=== PATIENT | female | born 1990 ===

== ENCOUNTER 2021-03-08 09:40 | Emergency (ER) | payer OTHER ==
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
[2021-03-08 11:47] LABS: Urine Blood Negative (Negative); Urine Glucose Negative (Negative); Urine Protein Negative (Negative); Urine Specific Gravity 1.025 (1.005-1.030)
[2021-03-08 11:54] LABS: Absolute Lymphocytes (CBC) 2.7 K/uL (0.7-4.9); Albumin 3.7 g/dL (3.4-5.0); Basophils % 0.8 % (0-1.3); Bilirubin Total 0.4 mg/dL (0.2-1.0); Lymphocytes % 31.9 % (15.3-44.8); MPV 9.6 fL (7.6-11.3); Potassium 3.8 mmol/L (3.5-5.1); Protein, Total 7.5 g/dL (6.4-8.2); RBC Red Blood Cell Count 4.54 M/uL (3.86-4.86)
[2021-03-08] MEDS ORDERED: MORPHINE 2 MG/ML SYR ONE ×2 (11:56→13:05)
[2021-03-08] MEDS ORDERED: KETOROLAC 30 MG/ML INJ ONE (11:56)
[2021-03-08] MEDS ORDERED: NA CHLORIDE 0.9% 1,000 ML ONE (11:56)
[2021-03-08] MEDS ORDERED: ONDANSETRON 4 MG/2 ML VIAL ONE (11:56)
--- NOTE | 2021-03-08 12:06 | RAD REPORT ---
EXAM DESCRIPTION: CT - CTHCSPWOC - 03/08/2021 11:45 am CLINICAL HISTORY: PAINrecent steroid injection COMPARISON: No comparisons TECHNIQUE: Axial 5 mm thick images of the head were obtained. Axial 2 mm thick images of the cervic al spine were obtained with sagittal and coronal reconstruction images generated and reviewed. All CT scans are performed using dose optimization technique as appropriate and may include automated exposure control or mA/KV adjustment according to patient size. FINDINGS: No intracranial hemorrhage, mass, edema or acute intracranial finding. No suspicion for ac [place] infarction. No extra-axial fluid collections. Mastoid air cells and paranasal sinuses are clear. No globe or orbit abnormality seen. Cervical bodies are normal in height. No subluxation abnormality. Anterior endplate spurring at C6-7. There is reversal of the usual cervical lordosis which could be positioning artifact or muscle spasm affect. No disk space narrowing. No fracture or acute bony abnormality. Central canal detail is inh erently limited. No paraspinal mass or hematoma. IMPRESSION: Negative CT head examination for acute or significant finding. No acute cervical spine abnormality seen. View reversal of the usual cervical lordosis could be posit ioning artifact within the scanner, muscle spasm or a combination.
--- NOTE | 2021-03-08 12:24 | EDPHYS ---
Physician Documentation [facility] Name: Maria Del Rosario Xiao Age: 30 yrs Sex: Female : 1990 Arrival Date: 03/08/2021 Time: 09:43 Bed 13 Private MD: ED Physician Ranjith Osuna HPI: 03/08 11:16 This 30 yrs old Black Female presents to ER via Ambulatory with complaints of Headache, edson Fever, Numbness of Finger, Nausea/Vomiting. 11:16 The patient complains of pain to the top of head, forehead, left frontal area, left edson side of the back of head, left occipital area, left base of the skull, right frontal area, right side of the back of head, right occipital area and right base of the skull. The patient describes the headache as constant. Onset: The symptoms/episode began/occurred 2 day(s) ago. Associated signs and symptoms: The patient has no apparent associated signs or symptoms. Severity of symptoms: At its worst the pain was mild, just prior to arrival, in the emergency department the pain is unchanged. Headache History: The patient has had previous headaches and this one is different than previous episodes. The symptoms are alleviated by nothing. the symptoms are aggravated by nothing. The patient has not experienced similar symptoms in the past. 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 - Social history:: Smoking status: Patient denies any tobacco usage or history of. - Family history:: not pertinent. ROS: 11:16 Constitutional: Negative for fever, chills, and weight loss, Eyes: Negative for injury, edson pain, redness, and discharge, ENT: Negative for injury, pain, and discharge, Neck: Negative for injury, pain, and swelling, Cardiovascular: Negative for chest pain, palpitations, and edema, Respiratory: Negative for shortness of breath, cough, wheezing, and pleuritic chest pain, Abdomen/GI: Negative for abdominal pain, nausea, vomiting, diarrhea, and constipation, Back: Negative for injury and pain, : Negative for injury, bleeding, discharge, and swelling, MS/Extremity: Negative for injury and deformity, Skin: Negative for injury, rash, and discoloration, Psych: Negative for depression, anxiety, suicide ideation, homicidal ideation, and hallucinations, Allergy/Immunology: Negative for hives, rash, and allergies, Endocrine: Negative for neck swelling, polydipsia, polyuria, polyphagia, and marked weight changes, Hematologic/Lymphatic: Negative for swollen nodes, abnormal bleeding, and unusual bruising. 11:16 Neuro: Positive for headache. Exam: 11:16 Constitutional: This is a well developed, well nourished patient who is awake, alert, edson and in no acute distress. Head/Face: Normocephalic, atraumatic. Eyes: Pupils equal round and reactive to light, extra-ocular motions intact. Lids and lashes normal. Conjunctiva and sclera are non-icteric and not injected. Cornea within normal limits. Periorbital areas with no swelling, redness, or edema. ENT: Nares patent. No nasal discharge, no septal abnormalities noted. Tympanic membranes are normal and external auditory canals are clear. Oropharynx with no redness, swelling, or masses, exudates, or evidence of obstruction, uvula midline. Mucous membranes moist. Neck: Trachea midline, no thyromegaly or masses palpated, and no cervical lymphadenopathy. Supple, full range of motion without nuchal rigidity, or vertebral point tenderness. No Meningismus. Chest/axilla: Normal chest wall appearance and motion. Nontender with no deformity. No lesions are appreciated. Cardiovascular: Regular rate and rhythm with a normal S1 and S2. No gallops, murmurs, or rubs. Normal PMI, no JVD. No pulse deficits. Respiratory: Lungs have equal breath sounds bilaterally, clear to auscultation and percussion. No rales, rhonchi or wheezes noted. No increased work of breathing, no retractions or nasal flaring. Abdomen/GI: Soft, non-tender, with normal bowel sounds. No distension or tympany. No guarding or rebound. No evidence of tenderness throughout. Back: No spinal tenderness. No costovertebral tenderness. Full range of motion. Female : Normal external genitalia. Skin: Warm, dry with normal turgor. Normal color with no rashes, no lesions, and no evidence of cellulitis. MS/ Extremity: Pulses equal, no cyanosis. Neurovascular intact. Full, normal range of motion. Neuro: Awake and alert, GCS 15, oriented to person, place, time, and situation. Cranial nerves II-XII grossly intact. Motor strength 5/5 in all extremities. Sensory grossly intact. Cerebellar exam normal. Normal gait. Psych: Awake, alert, with orientation to person, place and time. Behavior, mood, and affect are within normal limits. 11:16 Neck: ROM/movement: pain, limited range of motion, that is mild, in any direction, Meningeal signs: are not present, Kernig's sign is negative, Brudzinski's sign is negative, nuchal rigidity, is not appreciated. Vital Signs: 10:00 BP 128 / 81; Pulse 67; Resp 16; Temp 97.4; Pulse Ox 100% on R/A; Weight 97.52 kg; hb Height 5 ft. 4 in. (162.56 cm); Pain 10/10; 10:52 BP 104 / 72; Pulse 72; Pulse Ox 99% on R/A; mb4 11:59 BP 107 / 55; Pulse 61; Resp 16 S; Pulse Ox 100% on R/A; ca1 12:47 BP 102 / 78; Pulse 68; Resp 16 S; Pulse Ox 100% on R/A; ca1 13:16 BP 110 / 71; Pulse 65; Resp 16 S; Pulse Ox 100% on R/A; ca1 10:00 Body Mass Index 36.90 (97.52 kg, 162.56 cm) hb Yuli Coma Score: 11:21 Eye Response: spontaneous(4). Verbal Response: oriented(5). Motor Response: obeys edson commands(6). Total: 15. MDM: 10:23 Patient medically screened. edson 11:21 Differential diagnosis: hypoglycemia, hyponatremia, meningitis, migraine, sinusitis, edson subdural hematoma, tension headache. Data reviewed: vital signs, nurses notes, lab test result(s), radiologic studies, CT scan. Data interpreted: court monitor: rate is 72 beats/min, rhythm is regular, Pulse oximetry: on room air is 99 %. Counseling: I had a detailed discussion with the patient and/or guardian regarding: the historical points, exam findings, and any diagnostic results supporting the discharge/admit diagnosis, lab results, radiology results. 03/08 11:14 Order name: CBC with Diff; Complete Time: 12:16 [facility] 03/08 11:14 Order name: Comprehensive Metabolic Panel; Complete Time: 12:16 [facility] 03/08 11:14 Order name: Urine Culture [facility] 03/08 11:46 Order name: Urine --Ancillary (enter results) 03/08 11:47 Order name: Urine Dipstick-Ancillary; Complete Time: 12:16 [facility] 03/08 11:47 Order name: Urine --Ancillary [facility] 03/08 11:14 Order name: CT Head C Spine; Complete Time: 12:16 [facility] 03/08 11:14 Order name: Urine Dipstick-Ancillary (obtain specimen); Complete Time: 11:46 [facility] Administered Medications: 11:52 Drug: NS 0.9% 1000 ml Route: IV; Rate: 1 bolus; Site: left antecubital; ca1 13:15 Follow up: Response: No adverse reaction; IV Status: Completed infusion; IV Intake: ca1 1000ml 11:53 Drug: Zofran (Ondansetron) 4 mg Route: IVP; Site: left antecubital; ca1 12:48 Follow up: Response: No adverse reaction; Nausea is decreased ca1 11:55 Drug: TORadol (ketorolac) 30 mg Route: IVP; Site: left antecubital; ca1 12:47 Follow up: Response: No adverse reaction; Pain is unchanged, physician notified ca1 11:58 Drug: morphine 2 mg {Note: rass 0.} Route: IVP; Site: left antecubital; ca1 12:47 Drug: morphine 2 mg {Note: rass 0.} Route: IVP; Site: left antecubital; ca1 13:17 Follow up: Response: No adverse reaction; Pain is decreased; RASS: Alert and Calm (0) ca1 Disposition: 03/08/21 12:24 Discharged to Home. Impression: Headache, Strain of muscle, fascia and tendon at neck level, Radiculopathy, cervical region. - Condition is Stable. - Discharge Instructions: Cervical Radiculopathy, General Headache Without Cause, Muscle Strain, General Headache Without Cause, Gcri-cf-Uthy, Cervical Radiculopathy, Vdhf-ps-Svpc, Radicular Pain. - Prescriptions for Ibuprofen 600 mg Oral Tablet - take 1 tablet by ORAL route every 6 hours As needed take with food; 20 tablet. Zofran 4 mg Oral Tablet - take 1 tablet by ORAL route every 12 hours As needed; 14 tablet. Medrol (Mario) 4 mg Oral Tablets, Dose Pack - take 1 tablet by ORAL route as directed - follow package instructions; 1 packet. - Medication Reconciliation Form, Thank You Letter, Antibiotic Education, Prescription Opioid Use, Work release form form. - Follow up: Private Physician; When: 2 - 3 days; Reason: Recheck today's complaints, Continuance of care, Re-evaluation by your physician. Follow up: Dilan Rose MD; When: 2 - 3 days; Reason: Recheck today's complaints, Re-evaluation by your physician. - Problem is new. - Symptoms have improved. Signatures: Dispatcher [employer] EDMS Ranjith Osuna MD MD cha Baxter, Heather, RN RN Vianney Gillespie RN RN ca1 Corrections: (The following items were deleted from the chart) 13:17 12:24 03/08/2021 12:24 Discharged to Home. Impression: Headache; Strain of muscle, ca1 fascia and tendon at neck level; Radiculopathy, cervical region. Condition is Stable. Forms are Medication Reconciliation Form, Thank You Letter, Antibiotic Education, Prescription Opioid Use. Follow up: Private Physician; When: 2 - 3 days; Reason: Recheck today's complaints, Continuance of care, Re-evaluation by your physician. Follow up: Dilan Rose; When: 2 - 3 days; Reason: Recheck today's complaints, Re-evaluation by your physician. Problem is new. Symptoms have improved. edson
--- NOTE | 2021-03-08 12:24 | ER ---
Nurse's Notes [facility] Name: Maria Del Rosario Xiao Age: 30 yrs Sex: Female : 1990 Arrival Date: 03/08/2021 Time: 09:43 Bed 13 Private MD: Diagnosis: Headache;Strain of muscle, fascia and tendon at neck level;Radiculopathy, cervical region Presentation: 03/08 10:00 Chief complaint: Had steroid injection C5-C-[address] Hampton 5 days ago, c/o worsening hb headache, nausea, and tingling in bilateral hands. Coronavirus screen: At this time, the client does not indicate any symptoms associated with coronavirus-19. Ebola Screen: No symptoms or risks identified at this time. Initial Sepsis Screen: Does the patient meet any 2 criteria? No. Patient's initial sepsis screen is negative. Does the patient have a suspected source of infection? No. Patient's initial sepsis screen is negative. Risk Assessment: Do you want to hurt yourself or someone else? Patient reports no desire to harm self or others. Onset of symptoms was March 03, 2021. 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 - Social history:: Smoking status: Patient denies any tobacco usage or history of. - Family history:: not pertinent. Screenin:10 Abuse screen: Denies threats or abuse. Denies injuries from another. Nutritional ca1 screening: No deficits noted. Tuberculosis screening: No symptoms or risk factors identified. Fall Risk None identified. Assessment: 10:10 General: Appears in no apparent distress. uncomfortable, Behavior is calm, cooperative, ca1 appropriate for age. Pain: Complains of pain in head Pain currently is 10 out of 10 on a pain scale. Pain began 2-3 days ago. Is continuous. Neuro: Level of Consciousness is awake, alert, obeys commands, Oriented to person, place, time, situation. Cardiovascular: Heart tones S1 S2 present Capillary refill < 3 seconds Patient's skin is warm and dry. Respiratory: Airway is patent Respiratory effort is even, unlabored, Respiratory pattern is regular, symmetrical, Breath sounds are clear bilaterally. GI: Abdomen is round non-distended, Bowel sounds present X 4 quads. Abd is soft and non tender X 4 quads. Reports nausea, vomiting, since yesterday. : No signs and/or symptoms were reported regarding the genitourinary system. EENT: No signs and/or symptoms were reported regarding the EENT system. Derm: Skin is intact, is healthy with good turgor, Skin is pink, warm \T\ dry. Musculoskeletal: Circulation, motion, and sensation intact. Capillary refill < 3 seconds, Reports numbness in right hand and left hand. 11:00 Reassessment: Patient appears in no apparent distress at this time. Patient and/or ca1 family updated on plan of care and expected duration. Pain level reassessed. Patient is alert, oriented x 3, equal unlabored respirations, skin warm/dry/pink. 11:57 Reassessment: Patient appears in no apparent distress at this time. Patient and/or ca1 family updated on plan of care and expected duration. Pain level reassessed. Patient is alert, oriented x 3, equal unlabored respirations, skin warm/dry/pink. 12:47 Reassessment: Patient appears in no apparent distress at this time. Patient and/or ca1 family updated on plan of care and expected duration. Pain level reassessed. Patient is alert, oriented x 3, equal unlabored respirations, skin warm/dry/pink. 13:16 Reassessment: Patient appears in no apparent distress at this time. Patient is alert, ca1 oriented x 3, equal unlabored respirations, skin warm/dry/pink. Vital Signs: 10:00 BP 128 / 81; Pulse 67; Resp 16; Temp 97.4; Pulse Ox 100% on R/A; Weight 97.52 kg; hb Height 5 ft. 4 in. (162.56 cm); Pain 10/10; 10:52 BP 104 / 72; Pulse 72; Pulse Ox 99% on R/A; mb4 11:59 BP 107 / 55; Pulse 61; Resp 16 S; Pulse Ox 100% on R/A; ca1 12:47 BP 102 / 78; Pulse 68; Resp 16 S; Pulse Ox 100% on R/A; ca1 13:16 BP 110 / 71; Pulse 65; Resp 16 S; Pulse Ox 100% on R/A; ca1 10:00 Body Mass Index 36.90 (97.52 kg, 162.56 cm) hb Mckee Coma Score: 11:21 Eye Response: spontaneous(4). Verbal Response: oriented(5). Motor Response: obeys edson commands(6). Total: 15. ED Course: 09:43 Patient arrived in ED. bp1 10:02 Triage completed. hb 10:02 Arm band placed on. hb 10:03 Vianney Gillespie, RN is Primary Nurse. ca1 10:10 Patient has correct armband on for positive identification. Bed in low position. Call ca1 light in reach. Side rails up X 1. Pulse ox on. NIBP on. Door closed. Noise minimized. Lights dimmed. Warm blanket given. 10:23 Ranjith Osuna MD is Attending Physician. edson 11:33 Initial lab(s) drawn, by me, sent to lab. Inserted saline lock: 22 gauge in left ca1 antecubital area, using aseptic technique. Blood collected. 11:45 CT Head C Spine In Process Unspecified. EDMS 12:23 Dilan Rose MD is Referral Physician. edson 12:47 No provider procedures requiring assistance completed. ca1 13:17 IV discontinued, intact, bleeding controlled, No redness/swelling at site. Pressure ca1 dressing applied. Administered Medications: 11:52 Drug: NS 0.9% 1000 ml Route: IV; Rate: 1 bolus; Site: left antecubital; ca1 13:15 Follow up: Response: No adverse reaction; IV Status: Completed infusion; IV Intake: ca1 1000ml 11:53 Drug: Zofran (Ondansetron) 4 mg Route: IVP; Site: left antecubital; ca1 12:48 Follow up: Response: No adverse reaction; Nausea is decreased ca1 11:55 Drug: TORadol (ketorolac) 30 mg Route: IVP; Site: left antecubital; ca1 12:47 Follow up: Response: No adverse reaction; Pain is unchanged, physician notified ca1 11:58 Drug: morphine 2 mg {Note: rass 0.} Route: IVP; Site: left antecubital; ca1 12:47 Drug: morphine 2 mg {Note: rass 0.} Route: IVP; Site: left antecubital; ca1 13:17 Follow up: Response: No adverse reaction; Pain is decreased; RASS: Alert and Calm (0) ca1 Intake: 13:15 IV: 1000ml; Total: 1000ml. ca1 Outcome: 12:24 Discharge ordered by . edson 13:17 Discharged to home ambulatory, with family. ca1 13:17 Condition: stable 13:17 Discharge instructions given to patient, Instructed on discharge instructions, follow up and referral plans. medication usage, Demonstrated understanding of instructions, follow-up care, medications, Prescriptions given X 3. 13:17 Patient left the ED. ca1 Signatures: Dispatcher [employer] EDTX Ranjith Osuna MD MD cha Baxter, Heather, RN RN Cathleen Yo mb4 Vianney Gillespie RN RN Estefania Martínez bp1
[2021-03-08 13:26] LABS: Urine Specific Gravity/Preg 1.025 (1.005-1.030)
[2021-03-08 13:37] VITALS: TEMP 97.4
[2021-03-08 13:43] VITALS: O2SAT 100
[2021-03-08 13:46] VITALS: BP 110/71
== END 2021-03-08 13:17 | disposition home or self-care (01) ==
LOC: ER 09:40
DX: S16.1XXA Strain of muscle, fascia and tendon at neck level, initial encounter (principal); M54.12 Radiculopathy, cervical region
CPT/HCPCS: 96361; 87088; 85025; 87086; 36415; 81025; 81003; 80053; 70450; 72125; 96375; 96374; 99284; J2270 ×2; J7030; J2405